=== PATIENT | male | born 2005 | race Caucasian/White ===

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

== ENCOUNTER 2024-01-10 14:10 | Day surgery (SDC) | payer MEDICAID, SELFPAY ==
[2024-01-10] VITALS (10 sets, daily range): BP systolic 127–163; BP diastolic 77–86; PULSE 86–138; RESP 16–20; TEMP 36.6–37.3; O2SAT 97–99; BMI 24.7
--- NOTE | 2024-01-10 14:20 | CT_ITS ---
We are attempting to reach an attending provider to discuss findings. An addendum with communication details will be sent when the communication is complete. STUDY: CT ABDOMEN AND PELVIS WITH CONTRAST REASON FOR EXAM: Male, 18 years old. RLQ and suprapubic pain RADIATION DOSAGE (If Supplied By Facility): CTDIvol = ( 13.70 ) mGy, DLP = ( 768.72 ) mGycm TECHNIQUE: IV 100mL Isovue-370 was administered. Transaxial images were obtained from the dome of the diaphragm to the symphysis pubis. Multiplanar coronal and sagittal images were reformatted. The protocol utilizes one or more of the following dose reduction techniques: automated exposure control, adjustment of mA and/or kV according to patient size,and/or use of iterative reconstruction technique. COMPARISON: No relevant prior comparison study available FINDINGS: The visualized lung bases are unremarkable. The visualized portions of the heart are within normal limits. Normal liver. Normal gallbladder and extrahepatic biliary system. Normal spleen. Normal pancreas. Normal bilateral adrenal glands. Normal right kidney. Normal left kidney. Normal visualized stomach. Normal small intestine. Normal colon. There is a tubular, thick-walled appendix (>7mm), consistent with acute appendicitis. Normal abdominal aorta. No retroperitoneal adenopathy. Normal urinary bladder. Trace of free fluid in the pelvis. Normal abdominal wall. Normal osseous structures. CT/Abdomen/Pelvis W IV Cont ONLY IMPRESSION: Thickening of the appendix consistent with acute appendicitis. Electronically Signed: Jong Nunez MD at 15:04 EDT ,
[2024-01-10 14:37] LABS: Absolute Lymphocyte Count 1.36 X10^3/uL (0.83-4.51); Absolute Neutrophil Count 19.1 X10^3/uL (2.0-7.7); Basophil# 0.06 X10^3/uL; Basophil% 0.3 % (0-1); Eosinophils% 0.9 % (0-5); Hematocrit 44.4 % (40-54); Hemoglobin 14.9 g/dL (13.0-16.5); Lymphocyte # 1.36 X10^3/ul (0.83-4.51); Lymphocyte % 6.2 % (19-41); Mean Corp Hgb Conc 33.6 g/dL (32-36); Mean Corpuscular Hgb 28.6 pg (27.0-32.0); Mean Corpuscular Volume 85.2 fL (80-94); Mean Platelet Vol. 8.8 fl (6.2-12.0); Monocyte# 1.09 X10^3/uL; NRBC Flagged by Analyzer 0 % (0-5); Neutrophil # 19.11 X10^3/uL (2.7-7.7); Neutrophil % 87.1 % (47-70); Platelet Count 321 K/mm3 (150-450); RBC Distribution Width CV 13.3 % (11.6-14.6); RBC Distribution Width SD 41.4 fl (35.1-43.9); Red Blood Count 5.21 M/mm3 (4.6-6.2); White Blood Count 21.9 K/mm3 (4.4-11.0)
[2024-01-10] MEDS: 0.9% Normal Saline (1000mL) 1,000 ML 999 ML IV (14:37)
[2024-01-10] MEDS: Ondansetron 4 MG/2 ML Vial IV (14:37)
[2024-01-10] MEDS: Morphine 4 MG/ML Syringe IV (14:37)
[2024-01-10 14:53] LABS: ALB/GLOB Ratio 1.1 RATIO (0.9-2.4); AST(SGOT) 43 U/L (15-37); Alanine Aminotransfer ALT/SGPT 83 U/L (16-61); Albumin, Serum 4.1 g/dL (3.2-5.0); Alkaline Phosphatase 128 U/L (45-117); Anion Gap 5 (5-15); BUN 13 mg/dL (7-18); BUN/Creat Ratio 13.5 RATIO (10-20); Calcium,Total 9.8 mg/dL (8.5-10.1); Chloride 102 mmol/L (98-107); Creatinine, Serum 0.96 mg/dL (0.70-1.30); EST Glomerular Filtration Rate 105 mL/min (>60); Est Glom Filt Rate - Afr Amer 127 mL/min (>60); Estimated Creatinine Clearance 134.72 ml/min; Globulin 3.7 g/dL (2.2-4.2); Glucose 122 mg/dL (74-106); Lipase 40 U/L (13-75); Potassium 4.2 mmol/L (3.5-5.1); Protein, Total 7.8 g/dL (6.4-8.2); Sodium Level 136 mmol/L (136-145)
--- NOTE | 2024-01-10 15:01 | EDS_ITS ---
HPI History of Present Illness Chief Complaint: Abd Pain Onset/Context/Timing Quality - All: pressure Narrative Narrative: Patient is a 18-year-old male with a past medical history of anxiety who presents to the emergency department with chief complaint of abdominal pain. He states that his abdominal pain started this morning and progressively worsened prompting him to come here for the evaluation management. Patient states that he has not bowel movements in a few days he normally goes every other day. Patient denies any recent sick contacts denies eating anything out of the ordinary for himself. He states that he does have some nausea denies any diarrhea. [facility] Medical History Asthma Manic depression Anxiety Home Medications ?Medication ?Instructions ?Recorded ?Last Taken ?Type olanzapine 10 mg tablet 5 mg PO BID psychosis 01/10/24 Unknown History venlafaxine 37.5 mg 37.5 mg PO DAILY 01/10/24 Unknown History capsule,extended release 24 hr Allergy/AdvReac Type Severity Reaction Status Date / Time No Known Allergies Allergy Verified 01/10/24 14:11 Social History Smoking Status: Current some day smoker tobacco type: e-cigarettes ROS ROS ED ROS Narrative Constitutional: Denies any fevers, headache, lightheadedness, dizziness Cardiovascular: Denies chest pain or palpitations Respiratory: Denies coughing wheezing shortness of breath Abdomen: Complains of abdominal pain and nausea as noted above : Denies any urinary symptoms Neurological: Denies numbness, weakness, tingling Neurological: Denies numbness, weakness, tingling Skin: Denies rashes or lesions EXAM Physical Exam Narrative Exam Narrative: General: Patient lying in bed rest comfortably did not appear to be in acute distress Head: Atraumatic, normocephalic Eyes: Pupils equal round reactive to light bilaterally, extraocular muscles intact bilateral, no conjunctival injection noted Neck: Soft, supple, trachea midline Cardiovascular: Regular rate and rhythm no murmurs gallops rubs noted Respiratory: Clear to auscultation bilaterally no rales rhonchi or wheezes noted Abdomen: Soft, nondistended, tenderness to palpation in the right lower quadrant in the suprapubic region no rebound or guarding on exam, bowel sounds present x 4 Extremities: +5/5 strength noted in the bilateral upper and lower extremities Neurological: Patient following commands that he is at [facility] year is 2023 Skin: Warm, dry, intact Const Vital Signs: 01/10/24 14:11 Temperature 97.9 F Temperature Source Temporal Pulse Rate 86 Respiratory Rate 16 Blood Pressure 127/86 H Blood Pressure Mean 99 Pulse Ox 97 Oxygen Delivery Method Room Air MDM MDM MDM Narrative Medical decision making narrative: Patient is a 18-year-old male who presented to the emergency department chief complaint of abdominal pain. Patient will have a workup here on the diffe rential diagnosis includes to viral gastroenteritis, appendicitis, pancreatitis, viral gastroenteritis. Patient be given IV fluids, morphine and Zofran and be reevaluated. Patient CBC was significant for leukocytosis of 21,000, hemoglobin stable 14.9, platelet count normal at 321. Patient sodium normal 136, potassium normal at 4.2, creatinine normal at 0.96. Patient's AST and ALT were 43 and 83 respectively Right, lipase normal at 40. Patient CT abdomen pelvis with IV contrast was reviewed and showed acute appendicitis. Patient was given Zosyn. A did discuss case with on-call general surgeon Dr. Tobar who accept patient for admission. Patient was notified with all question concerns answered. He states that his pain has improved significantly after pain medication administered. Lab Data Labs: Laboratory Results - last 24 hr 01/10/24 14:30 WBC 21.9 H RBC 5.21 Hgb 14.9 Hct 44.4 MCV 85.2 MCH 28.6 MCHC 33.6 RDW Std Deviation 41.4 RDW Coeff of Jose David 13.3 Plt Count 321 MPV 8.8 Immature Gran % (Auto) 0.500 Neut % (Auto) 87.1 H Lymph % (Auto) 6.[address] % (Auto) 5.0 Eos % (Auto) 0.9 Baso % (Auto) 0.3 Absolute Neuts (auto) 19.1 H Absolute Lymphs (auto) 1.36 Nucleated RBC % 0 Sodium 136 Potassium 4.2 Chloride 102 Carbon Dioxide 29.0 Anion Gap 5 BUN 13 Creatinine 0.96 Estim Creat Clear Calc 134.72 Est GFR (MDRD) Af Amer 127 Est GFR (MDRD) Non-Af 105 BUN/Creatinine Ratio 13.5 Glucose 122 H Calcium 9.8 Total Bilirubin 0.40 AST 43 H ALT 83 H Alkaline Phosphatase 128 H Total Protein 7.8 Albumin 4.1 Globulin 3.7 Albumin/Globulin Ratio 1.1 Lipase 40 Radiography Diagnostic Testing: Clinical Impression(s) from Imaging Studies Abdomen/Pelvis CT 01/10/24 14:20 IMPRESSION: Thickening of the appendix consistent with acute appendicitis. Electronically Signed: Jong Nunez MD at 15:04 EDT , ADDENDUM: 01/10/24 1515 IMPRESSION: Thickening of the appendix consistent with acute appendicitis. N.B. : The above Results were Read Back by Jong Nunez MD to Zuhair Plummer DO, and understanding confirmed on 01/10/2024 15:08:10 (ET). Electronically Signed: Jong Nunez MD at 15:04 EDT , Discharge Plan Triage Chief Complaint: Abd Pain ED Provider: Zuhair Plummer Dx/Rx/DC Orders Clinical Impression: Acute appendicitis, Abdominal pain Prescriptions: No Action venlafaxine 37.5 mg capsule,extended release 24hr 37.5 mg PO DAILY olanzapine 10 mg tablet 5 mg PO BID Primary Care Provider: Elidia Moa NP Referrals: Elidia Mao NP, [employer] [Primary Care Provider] - Print Language: Frisian Disposition Disposition: Acute Care Hospital
[2024-01-10] MEDS: Piperacil/Tazobactam 3.375 GM in 0.9% Normal Saline (50mL MB+) 50 ML IV (15:25)
--- NOTE | 2024-01-10 15:37 | PCM.HP.STD ---
HPI - General General Date of Service: 01/10/24 Chief Complaint: Acute onset progressive abdominal pain HPI Narrative TY MARRERO, is a 18 M who presents to [facility] with complaints of acute onset progressive abdominal pain. He shares that this pain began approximately 730 this morning after he returned home from his third shift duties. He relates that the pain was also associated with some nausea and vomiting. He denies any fevers or chills. His mother accompanies him in the emergency department. She promised him that he has not had a normal appetite. He then goes on to share that he has been constipated and felt bloated every time he eats over the past couple days. Patient's laboratories demonstrate leukocytosis with CBC of 21.9. CT imaging of the abdomen pelvis is read as consistent with acute appendicitis. Patient's only past medical history is for anxiety and depression. He states he is also under workup with neurology for a interesting phenomenon where his right side does not work after sitting for a while. He wishes to know whether his appendicitis is potentially related to this undiagnosed condition. [facility], [facility] Medical History Asthma Manic depression Anxiety Home Medications ?Medication ?Instructions ?Recorded ?Last Taken ?Type olanzapine 10 mg tablet 5 mg PO BID psychosis 01/10/24 Unknown History venlafaxine 37.5 mg 37.5 mg PO DAILY 01/10/24 Unknown History capsule,extended release 24 hr Allergy/AdvReac Type Severity Reaction Status Date / Time No Known Allergies Allergy Verified 01/10/24 14:11 Social History Smoking Status: Current some day smoker tobacco type: e-cigarettes ROS Constitutional Constitutional: Denies chills or fever(s) Gastrointestinal Gastrointestinal: Reports abdominal pain, bloating, constipation, nausea and vomiting Vital Signs Vital Signs Vital Signs: 01/10/24 14:11 Temperature 97.9 F Temperature Source Temporal Pulse Rate 86 Respiratory Rate 16 Blood Pressure 127/86 H Blood Pressure Mean 99 Pulse Ox 97 Oxygen Delivery Method Room Air Weight Weight: 182 lb 4.8 oz Body Mass Index (BMI) 24.7 Physical Exam Const alert, oriented x3, no apparent distress and well nourished General Appearance: cooperative and well developed Resp normal respiratory effort GI GI Narrative: Hirsute, normal habitus, nondistended, no visible herniation, soft, tender to palpation over McBurney's point. Negative Rovsing, negative obturator, negative psoas sign Results Lab / Micro Data 01/10/24 14:30 01/10/24 14:30 Labs: Laboratory Results - last 24 hr 01/10/24 14:30: WBC 21.9 H, RBC 5.21, Hgb 14.9, Hct 44.4, MCV 85.2, MCH 28.6, MCHC 33.6, RDW Std Deviation 41.4, RDW Coeff of Jose David 13.3, Plt Count 321, MPV 8.8, Immature Gran % (Auto) 0.500, Neut % (Auto) 87.1 H, Lymph % (Auto) 6.2 L, [place] % (Auto) 5.0, Eos % (Auto) 0.9, Baso % (Auto) 0.3, Absolute Neuts (auto) 19.1 H, Absolute Lymphs (auto) 1.36, Nucleated RBC % 0, Sodium 136, Potassium 4.2, Chloride 102, Carbon Dioxide 29.0, Anion Gap 5, BUN 13, Creatinine 0.96, Estim Creat Clear Calc 134.72, Est GFR (MDRD) Af Amer 127, Est GFR (MDRD) Non-Af 105, BUN/Creatinine Ratio 13.5, Glucose 122 H, Calcium 9.8, Total Bilirubin 0.40, AST 43 H, ALT 83 H, Alkaline Phosphatase 128 H, Total Protein 7.8, Albumin 4.1, Globulin 3.7, Albumin/Globulin Ratio 1.1, Lipase 40 Imaging Radiology Impression Abdomen/Pelvis CT 01/10/24 14:20 IMPRESSION: Thickening of the appendix consistent with acute appendicitis. Electronically Signed: Jong Nunez MD at 15:04 EDT , ADDENDUM: 01/10/24 1077 IMPRESSION: Thickening of the appendix consistent with acute appendicitis. N.B. : The above Results were Read Back by Jong Nunez MD to Plummer, Zuhair , DO, and understanding confirmed on 01/10/2024 15:08:10 (ET). Electronically Signed: Jong Nunez MD at 15:04 EDT , Assessment & Plan Assessment/Plan (1) Acute appendicitis: PLAN: Patient is a 18-year-old male who presents with signs and symptoms of acute appendicitis. Symptoms began approximately 8 hours ago. His exam is positive for localized peritonitis in the region of McBurney's point. I discussed the generally excepted natural history of acute appendicitis and its management. I shared that in this country surgical appendectomy is still part of the standard of care although in other parts of the world and antibiotic alone approach is accepted. I discussed the reasons for this difference and then went on to detail the procedure itself. Ultimately emergent surgical laparoscopic appendectomy was recommended. Both patient and his mother had the opportunity ask questions which were answered to their satisfaction. Consents were signed during our encounter. Patient will be dispo to the OR from the emergency department. I have discussed outpatient disposition but shared that this is contingent on patient's clinical course and operative findings. Nelson Tobar MD General Surgery Endocrine Surgery Pager: [facility] [address] [place] [address], [address] [place] [address] Office: [phone] Charges/Coding Visit Charges Inpatient E&M: 37758 Init Hosp L2
[2024-01-10 15:58] LABS: Bacteria 0 SEEN /hpf (None Seen); Mucous, Urine 0 SEEN /hpf (<or=2+); Red Blood Cells-Urine 0 SEEN /hpf (0-5); Squamous Epithelial Cells - UA 0 SEEN /hpf (0-5); White Blood Cells 0 SEEN /hpf (0-5)
[2024-01-10 16:08] LABS: Color, Urine Yellow (Yellow); Glucose, Dipstick Normal (Normal); Ketone-Dipstick Negative (Negative); Leukocyte Esterase-Dipstick Negative /ul (Negative); Nitrite-Dipstick Negative (Negative); Occult Blood-Urine Negative /ul (Negative); Protein-Dipstick Negative (Negative); Urine Bilirubin Dipstick Negative (Negative); Urine Clarity Clear (Clear); Urine Urobilinogen Normal (Normal)
--- NOTE | 2024-01-10 16:24 | PRE.ANES_ITS ---
ASA Classification* ASA Classification ASA Classification: 2 and E Assessment & Plan Anesthesia* Anesthesia Assessment Anesthesia Assessment: Discussed sedation and/or anesthesia options, risks, benefits, and alternatives with patient/parents/legal guardian/POA. Questions invited. The patient/parents/legal guardian/POA seems to understand and agrees to proceed with anesthesia plan. Reviewed the physical assessment, medical history, allergy history and patient home medications list prior to surgery/procedure/anesthetic and documented any changes. Performed airway and anesthesia risk assessments. Anesthesia Type Anesthesia Type: General History Source History Obtained from:: Patient Anesthesia Focused Assessment* Temperature: 98 F Pulse Rate: 108 Blood Pressure: 136/85 Respiratory Rate: 16 Pulse Ox: 98 Oxygen Delivery Method: Room Air Airway Assessment Mouth opens: >3 cm Mallampati Score: II Teeth Condition: Intact (braces) Neck Range of motion (ROM): Full ROM Focused Labs Anesthesia Preop lab: CBC WBC 21.9 K/mm3 (4.4-11.0) H 01/10/24 14:30 RBC 5.21 M/mm3 (4.6-6.2) 01/10/24 14:30 Hgb 14.9 g/dL (13.0-16.5) 01/10/24 14:30 Hct 44.4 % (40-54) 01/10/24 14:30 Plt Count 321 K/mm3 (150-450) 01/10/24 14:30 CHEMISTRY Potassium 4.2 mmol/L (3.5-5.1) 01/10/24 14:30 Sodium 136 mmol/L (136-145) 01/10/24 14:30 BUN 13 mg/dL (7-18) 01/10/24 14:30 Creatinine 0.96 mg/dL (0.70-1.30) 01/10/24 14:30 Glucose 122 mg/dL (74-106) H 01/10/24 14:30 COAG Pre-Assessment Diagnosis/Proposed Procedure Planned Operative Procedure(s): Lap appy Anesthesia History Anesthesia History - dining room attendant: Anesthesia History - dining room attendant Hx Hospitalization Any Problems With Anesthesia No 01/10/24 15:33 Cholinesterase deficiency No 01/10/24 15:33 You/Your Family Experience No 01/10/24 15:33 fever (hyperthermia) with Relationship Recent Exposure to Contagious No 01/10/24 15:33 Disease Does patient have nerve No 01/10/24 15:33 stimulator Patient instructed to have No 01/10/24 15:33 device shut off --Does patient have Pacemaker No 01/10/24 15:33 or ICD? When Was Last Pacemaker Check QUESTION #4 FULL TEXT: You/Your Family Experience fever (hyperthermia) with Anesthesia Any additional information?: No Last Oral Intake Last Oral intake: Last Oral Intake NPO since 07:00 01/10/24 15:33 Meds taken in AM with sips of No 01/10/24 15:33 water? Meds patient instructed to take am of surgery Any additional information?: No PONV PONV - dining room attendant: PONV - dining room attendant Female HX of Motion Sickness HX of N/V After Surgery Non-Smoker Duration of Surgery greater than 60 minutes Number of Risk Factors PONV Score Any additional information?: No Height & Weight Height & Weight: Anesthesia: Height & Weight Height 6 ft 01/10/24 15:33 Weight: 82.69 kg 01/10/24 15:33 Body Mass Index (BMI) 24.7 01/10/24 15:33 Respiratory Assessment Respiratory Assessment - dining room attendant: Respiratory Tract Infection Hx - dining room attendant Hx Respiratory Tract Infection No 01/10/24 15:33 Any additional information?: No STOP Sleep Apnea STOP Sleep Apnea - dining room attendant: STOP Sleep Apnea - dining room attendant Hx Hypertension No 01/10/24 15:33 Hx Sleep Apnea No 01/10/24 15:33 CPAP BIPAP Do you snore loudly (louder No 01/10/24 15:33 than talking or can be heard Do you often feel tired/ No 01/10/24 15:33 fatigued/ sleepy during daytime? Has anyone observed you stop No 01/10/24 15:33 breathing during sleep? STOP Results Negative 01/10/24 15:33 QUESTION #5 FULL TEXT : Do you snore loudly (louder than talking or can be heard through closed doors)? Any additional information?: No Tobacco Use History Tobacco Use History - dining room attendant: Tobacco Use History - dining room attendant Tobacco Use Smoking Status Current some day smoker 01/10/24 14:31 Hx Tobacco Use Years Smoking Packs Smoked per Day Smoking Cessation Date was within the last 15 years Hx Smoking Cessation Date Hx Smoking Cessation Counseling Any additional information?: No Hematologic Medial History Hematologic Hx - dining room attendant: Hematologic Medical Hx - keno attendant Hx of Blood Transfusion Hx of Transfusion in last 3 Months Date of Last Transfusion (if within last 3 months) Ever experience any problems with transfusion(s)? Specify any problems Hx of Preganancy in last 3 Months Nurse Filling Out Transfusion & Questions: Date: Time: Patient unable to answer at this time (ie. confused, unrespo Any additional information?: No /Reproduction History /Reproductive History - dining room attendant: /Reproductive Hx- dining room attendant Hx Now No 01/10/24 15:33 Gestational Age (in weeks): EDC: Hx Hx Para Hx Section SAB No 01/10/24 15:33 Any additional information?: No PFSH Medical History Asthma Manic depression Anxiety Medical History no medical history Home Medications ?Medication ?Instructions ?Recorded ?Last Taken ?Type olanzapine 10 mg tablet 5 mg PO BID psychosis 01/10/24 Unknown History venlafaxine 37.5 mg 37.5 mg PO DAILY 01/10/24 Unknown History capsule,extended release 24 hr Allergy/AdvReac Type Severity Reaction Status Date / Time No Known Allergies Allergy Verified 01/10/24 14:11 Surgical History no surgical history Social History (Updated 01/10/24 @ 16:26 by Nelson Biswas CRNA) Smoking Status: Current some day smoker tobacco type: e-cigarettes substance use type: other details: marijuana daily, smoked today as well Review of Systems (Anesthesia) ROS Narrative System reviewed and no additional complaints, except as documented. Allergic/Immunologic Allergic/Immunologic: Reports asthma Physical Exam Const alert and oriented x3 General Appearance: anxious Orientation / Consciousness: awake HEENT dentition normal Neck full ROM Resp normal respiratory effort Auscultation: clear to auscultation bilaterally Cardio regular rate and regular rhythm Extremity full ROM Neuro oriented x3 and moves all extremities
--- NOTE | 2024-01-10 16:29 | NURSING ---
Report called to OR. They are ready for pt.
--- NOTE | 2024-01-10 17:05 | APP_PTH ---
PATIENT: TY MARRERO [place] [facility] [id number] AGE/SX: 18/M ROOM: RE01/10/[address]: Dr. Nelson Tobar MD : 2005 BED: DIS: 01/10/2024 SPEC #: [id number] RECD: 01/11/24 07:20 STATUS: HILARIA REMarkel #: [id number] MARIO: 01/10/24 17:[address]: Nelson Tobar DEPT: SURGICAL PATHOLOGY RECD BY: Jeffrey Bundy ENTERED: 01/11/24 08:49 SP TYPE: APPENDIX OTHR DR: Elidia Mao, DIRECTOR [facility] Tissues: Appendix, NOS Procedures: Surgery Specimen Level III HEADER OPERATION: Laparoscopic appendectomy PRE-OP DIAGNOSIS: Acute appendicitis TISSUE SUBMITTED: Appendix MICROSCOPIC DIAGNOSIS Appendix, appendectomy: Acute necrotizing appendicitis. Acute serositis. One benign lymph node. AM/mr 01/12/2024 MICROSCOPIC DESCRIPTION Slides are reviewed. GROSS DESCRIPTION Received in fixative is one container labeled with the patient's name and designated appendix. The specimen consists of lateral C shaped appendix measuring 9.5 cm in length and up to 1.0 cm in diameter. The attached periappendiceal adipose tissue measures up to 2.0 cm in width. The serosa is covered with anderson purulent exudate. No obvious perforation is identified. Mucosa is hemorrhagic. The lumen is filled with fecal material. No fecalith is identified. Personal Fitness Trainer sections are submitted in one cassette. / WILLIAMS: 01/11/2024 TC:2 CPT: 23857
[2024-01-10] MEDS: Bupiv/Epi 0.25% 30 ML Vial (17:29)
--- NOTE | 2024-01-10 17:40 | PCM.OPRPT ---
Report of Operation Date of Procedure: 01/10/24 Pre-Operative Diagnosis: Acute appendicitis Post-Operative Diagnosis: Acute uncomplicated appendicitis Surgery/Procedure Performed:: Laparoscopic appendectomy Description of Surgical Findings:: ? Acutely inflamed appendix with fibrinous exudate but no signs of perforation Surgeon: Nelson Tobar Type of Anesthesia: General/Supplemental Anesthesiologist: Nelson Biswas Specimen's removed: appendix Drains: none Estimated Blood Loss (mL): 5 Description of Procedure: After appropriate identification in the preoperative holding area, the patient was brought to the operating room and placed supine on the operating room table. Antibiotics had been preoperatively administered. Patient was then induced with general endotracheal anesthetic. The abdomen was prepped and draped in usual sterile fashion. Formal timeout was conducted to confirm both the patient and the procedure. A supraumbilical incision was made and carried down to the level of the fascia which was sharply opened. After opening the peritoneum in like fashion a finger sweep was made to confirm position, and a balloon trocar was placed and pneumoperitoneum was established to 15 mmHg. Patient was positioned in Trendelenburg with the left side down. 2 additional 5 mm trocars were placed in the left lower quadrant and suprapubic positions. The peritoneum was inspected and there were no signs of inadvertent injury from this [place] entry. The appendix was visualized with mild to moderate inflammation alongside of some simple fluid in the pelvis. Using blunt laparoscopic dissection, a window was made in the mesoappendix adjacent to the appendiceal base. The mesoappendix was divided with application of a laparoscopic Enseal device. Then the base of the appendix was sealed and amputated with the use of an Endo JOANNA stapler. The appendix was placed in an Endo Catch bag. The staple line was inspected for hemostasis and the fluid of the pelvis was suctioned free. After hemostasis was confirmed the appendix was removed from the umbilical port site and pneumoperitoneum was evacuated. The supraumbilical port site fascia was closed with #1 Vicryl in a [id number] fashion. The port sites were infiltrated with 30 mL local anesthetic (total). The skin of each port site was closed with 4-0 Monocryl in a subcuticular fashion. Steri-Strips and OpSite dressings were applied. Patient tolerated procedure well without any apparent complications. They were awoken from general anesthetic without issue and transferred to post anesthesia care unit for ongoing recovery. Complications None Procedures Digestive [id number]: [id number] Laparoscopy appendectomy
--- NOTE | 2024-01-10 17:43 | DCINST_ITS ---
Discharge Instructions Diet Discharge Diet: No restrictions Activity Discharge Activity: May Not Drive (No driving while using narcotic pain medication) and May Shower (Postoperative day 1) May shower in (days): 2 Ice area for (Minutes): 20 Lifting Restrictions: No lifting greater than 15 pounds for 2 weeks after surgery Dressing / Incision Call your doctor if your incision/area has: Continuous Slow Oozing, Increased Pain/ Swelling, Increased Redness, Foul Smelling Discharge and Swelling at the incision site Call your doctor if you observe: Fever of 101 or Higher Remove Dressing in: 2 days (Please leave Steri-Strips intact until they fall off spontaneously or are taken off at your follow-up visit) Cleanse incision/area with: Soap & Water Follow Up Care Please Follow Up With: Nelson Tobar MD When: 7-10days postop Test Results: Test results from this visit will be discussed in further detail at your follow- up appointment, if applicable. Discharge Plan Admission Primary Reason for Your Visit: Appendix removal Attending Provider: Nelson Tobar Primary Care Provider: Elidia Mao NP Instructions Print Language: Lebanese Discharge Orders/Prescriptions Prescriptions: New oxycodone 5 mg tablet 5 mg PO Q6H PRN (Reason: pain) 3 Days Qty: 10 0RF Continued venlafaxine 37.5 mg capsule,extended release 24hr 37.5 mg PO DAILY olanzapine 10 mg tablet 5 mg PO BID Referrals / Follow Up: Elidia Mao NP, ETHNOLOGY PROFESSOR-C [Primary Care Provider] - Disposition Disposition (needs filled in before D/C Order can be placed): Home, Self Care
--- NOTE | 2024-01-10 17:57 | PCM.POST.ANE ---
Anesthesia: Postop Eval I Current Vital Signs Temperature: 97.8 F Pulse Rate: 124 Blood Pressure: 151/84 Respiratory Rate: 20 Pulse Ox: 98 Oxygen Delivery Method: Room Air Assessment Airway patent: Yes Spontaneous unlabored respirations: Yes Mental status: Awake and Calm nausea: No Vomiting: No Anesthesia Complication: No Fluid Hydration Crystalloid volume administer (ml): 600 Total IV fluid infused: 600 Progress Note Anesthesia document: Postop Eval 1 completed: Yes
--- NOTE | 2024-01-10 17:59 | POSTOPAN2_ITS ---
Anesthesia Postop Eval I Sum Postop Eval Completion status Anesthesia document: Postop Eval 1 completed: Yes Anesthesia Postop Eval I Summary Anesthesia Postop Eval I Summary: Anesthesia Postop Eval I: Assessment Summary Airway patent Yes 01/10/24 17:57 FIREWORKS ASSEMBLY SUPERVISOR.MEDM Spontaneous unlabored Yes 01/10/24 17:57 FIREWORKS ASSEMBLY SUPERVISOR.MEDM respirations Mental status Awake,Calm 01/10/24 17:57 FIREWORKS ASSEMBLY SUPERVISOR.MEDM nausea No 01/10/24 17:57 FIREWORKS ASSEMBLY SUPERVISOR.MEDM Vomiting No 01/10/24 17:57 FIREWORKS ASSEMBLY SUPERVISOR.MEDM Anesthesia Postop Eval I: Fluid Summary Crystalloid volume administer 600 01/10/24 17:57 FIREWORKS ASSEMBLY SUPERVISOR.MEDM (ml) Colloids volume administered ( ml) Blood Product volume administered (ml) Total IV fluid infused 600 01/10/24 17:57 FIREWORKS ASSEMBLY SUPERVISOR.MEDM Anesthesia Postop Eval I: Summary Notes Anesthesia Complication No 01/10/24 17:57 FIREWORKS ASSEMBLY SUPERVISOR.MEDM Anesthesia Complication Comment: Post-operative progress note Anesthesia: Postop Eval II Evaluation Mental status: Awake Pain Level: 2 nausea: No Vomiting: No Complications Anesthesia Complication: No
--- NOTE | 2024-01-10 17:59 | PCM.POSTANE2 ---
Anesthesia Postop Eval I Sum Postop Eval Completion status Anesthesia document: Postop Eval 1 completed: Yes Anesthesia Postop Eval I Summary Anesthesia Postop Eval I Summary: Anesthesia Postop Eval I: Assessment Summary Airway patent Yes 01/10/24 17:57 WAREHOUSE STOCKER.MEDM Spontaneous unlabored Yes 01/10/24 17:57 WAREHOUSE STOCKER.MEDM respirations Mental status Awake,Calm 01/10/24 17:57 WAREHOUSE STOCKER.MEDM nausea No 01/10/24 17:57 WAREHOUSE STOCKER.MEDM Vomiting No 01/10/24 17:57 WAREHOUSE STOCKER.MEDM Anesthesia Postop Eval I: Fluid Summary Crystalloid volume administer 600 01/10/24 17:57 WAREHOUSE STOCKER.MEDM (ml) Colloids volume administered ( ml) Blood Product volume administered (ml) Total IV fluid infused 600 01/10/24 17:57 WAREHOUSE STOCKER.MEDM Anesthesia Postop Eval I: Summary Notes Anesthesia Complication No 01/10/24 17:57 WAREHOUSE STOCKER.MEDM Anesthesia Complication Comment: Post-operative progress note Anesthesia: Postop Eval II Evaluation Mental status: Awake Pain Level: 2 nausea: No Vomiting: No Complications Anesthesia Complication: No
== END 2024-01-10 19:21 | disposition home or self-care (01) ==
LOC: ED 15:27 → SDC 15:55
PROVIDERS: Emergency Provider Emergency Medicine; PCP Nurse Practitioner Family; Visit Provider Surgery
PROC: 0DTJ4ZZ Resection of Appendix, Percutaneous Endoscopic Approach (ICD-10-PCS; CPT 44970; principal; 2024-01-10 16:45)
DX: K35.30 Acute appendicitis with localized peritonitis, without perforation or gangrene (principal); F17.290 Nicotine dependence, other tobacco product, uncomplicated; Z23 Encounter for immunization
CPT/HCPCS: 44970; 74177; 80053; 81001; 83690; 85025; 88304; 90471; 99285; J7030; Q9967; A4216; J2405

== ENCOUNTER 2024-05-24 08:53 | Emergency (ER) | payer SELFPAY ==
[2024-05-24 08:54] VITALS: BP 165/102; PULSE 78; RESP 16; TEMP 36.3; O2SAT 98; BMI 22.6
--- NOTE | 2024-05-24 09:29 | EX.ED.VIS.PS ---
HPI HPI - Psych History of Present Illness Chief Complaint: Mental Health Detail of Chief Complaint: Paranoia Informant: patient Narrative Narrative: Patient presents to the emergency department with his mother. Patient feeling very paranoid. He feels like other people are talking about him and he has this feeling of impending doom. He feels like people think that he is a bad person and they think that he is in a abuser of your animals and some think he is a rapist and some think that he is a child predator. Patient's having thoughts of self-harm and plan would be to suffocate himself. When asked if he is attempted to harm himself he states that a couple nights ago he held his breath. Patient apparently had similar issues in presentation in September of this year and spent a week in a psychiatric facility. Patient had been on medication but stopped taking it for several months and started back up about a week ago. He takes venlafaxine and olanzapine. Denies recent illness. He does smoke occasional marijuana and vapes and drinks alcohol occasionally for [facility] Medical History (Updated 05/24/24 @ 13:[address] Daysi Montano, ) Acute appendicitis Abdominal pain Asthma Manic depression Anxiety Home Medications ?Medication ?Instructions ?Recorded ?Last Taken ?Type venlafaxine 37.5 mg 37.5 mg PO DAILY 01/10/24 Unknown History capsule,extended release 24 hr Allergy/AdvReac Type Severity Reaction Status Date / Time No Known Allergies Allergy Verified 05/24/24 08:57 Surgical History (Updated 01/21/24 @ 10:19 by Christine Arce) History of laparoscopic appendectomy Social History Smoking Status: Current some day smoker tobacco type: e-cigarettes substance use type: other details: marijuana daily, smoked today as well ROS ROS ED Review of Systems ROS Unobtainable: other Constitutional Constitutional ED: Reports lethargy; Denies chills, fever(s), sweats or weight loss Eyes Eyes: Denies blurry vision, change in vision or diplopia ENT ENT ED: Denies rhinorrhea or sore throat Cardiovascular Cardiovascular: Denies chest pain, orthopnea or racing heartbeat Respiratory/Chest Respiratory/Chest: Denies cough, dyspnea, dyspnea on exertion, orthopnea or sputum Gastrointestinal Gastrointestinal: Denies abdominal pain, diarrhea, nausea or vomiting Genitourinary Genitourinary ED: Denies dysuria, hematuria or urinary frequency Musculoskeletal Musculoskeletal: Denies arthralgias, back pain, myalgias or neck pain Integumentary Denies abscess, Abrasions or rash Neurologic Neurologic: Denies headache(s) or weakness Psychiatric Psychiatric: Reports depression, suicidal thoughts and other Details: Paranoia ; Denies anxiety Endocrine Endocrinology: Denies polydipsia, polyphagia or polyuria Hematologic/Lymphatic Hematologic/Lymphatic: Denies easy bleeding, easy bruising or lymphadenopathy Allergic/Immunologic Allergic/Immunologic ED: Denies mouth swelling, tongue swelling or urticaria EXAM Physical Exam Const Vital Signs: 05/24/24 08:54 Temperature 97.4 F L Temperature Source Oral Pulse Rate 78 Respiratory Rate 16 Blood Pressure 165/102 H Blood Pressure Mean 123 Pulse Ox 98 Oxygen Delivery Method Room Air Positive well nourished and well developed General Appearance ED: well developed and NAD HEENT Reports TM's clear and moist mucous membranes normocephalic and atraumatic; Negative for trauma or tenderness Tympanic Membrane ED: Yes TM's clear Eyes PERRL and EOMs intact bilaterally General Eye ED: Negative for pale conjunctiva or scleral icterus Neck no lymphadenopathy, supple and no JVD General: Negative for tenderness Chest Wall inspection of chest normal and palpation of chest normal Chest: Negative for tenderness Resp normal respiratory effort and clear to auscultation bilaterally Effort and Inspection: Negative for respiratory distress or pain with movement Auscultation: Negative for rhonchi, wheezes or diminished lung sounds Cardio regular rate, regular rhythm, S1 normal heart sound, S2 normal heart sound and no murmurs Peripheral Pulses: pulses 2+ throughout GI normal to inspection, nondistended, normoactive bowel sounds, soft to palpation, non-tender, non-distended and no masses Back/Spine no CVA tenderness and no thoracic nor lumbar tenderness Extremity normal to inspection General Extremety ED: Negative for edema General Extremity: Negative for edema Neuro oriented x3, CN's II-XII intact bilaterally, no sensory deficits noted and gait normal Sensorium / Orientation: awake, alert, oriented to person, oriented to place and oriented to time Motor Exam: strength 5/5 throughout and strength abnormal Psych mental status grossly normal Attitude: paranoid Speech: normal speech Mood & Affect: apathetic Thought Process: racing thoughts Attention / Concentration: attention grossly intact Skin no rashes or lesions noted and no wounds MDM MDM MDM Narrative Medical decision making narrative: Patient presents with paranoia and apparently is not been eating or sleeping well. Patient has been noncompliant with his medications. Similar presentation and hospitalization in September. CBC with differential obtained showing of 8.2 with hemoglobin 17 and platelet count of 369. Chemistries unremarkable. Alcohol was less than 3 and toxicology screen positive for marijuana. Patient evaluated by crisis. At this point we will attempt find placement for patient to psychiatric facility for definitive care. Patient care turned over to evening physician awaiting placement to psychiatric facility. Lab Data Attestation: I reviewed the patient's lab results. Labs: Laboratory Results - last 24 hr 05/24/24 05/24/24 09:40 12:00 WBC 8.2 RBC 5.96 Hgb 17.1 H Hct 50.9 MCV 85.4 MCH 28.7 MCHC 33.6 RDW Std Deviation 41.6 RDW Coeff of Jose David 13.4 Plt Count 389 MPV 9.3 Immature Gran % (Auto) 0.400 Neut % (Auto) 67.9 Lymph % (Auto) 22.7 Dickinson % (Auto) 7.5 Eos % (Auto) 0.6 Baso % (Auto) 0.9 Absolute Neuts (auto) 5.6 Absolute Lymphs (auto) 1.87 Nucleated RBC % 0 Sodium 138 Potassium 4.0 Chloride 106 Carbon Dioxide 25.0 Anion Gap 7 BUN 14 Creatinine 1.05 Estim Creat Clear Calc 119.33 Est GFR (MDRD) Af Amer 115 Est GFR (MDRD) Non-Af 95 BUN/Creatinine Ratio 13.3 Glucose 96 Calcium 10.3 H Urine Opiates Screen NEGATIVE Urine Methadone Screen NEGATIVE Ur Barbiturates Screen NEGATIVE Ur Phencyclidine Scrn NEGATIVE Ur Amphetamines Screen NEGATIVE MDMA (Ecstasy) Screen NEGATIVE U Benzodiazepines Scrn NEGATIVE Urine Cocaine Screen NEGATIVE U Cannabinoids Screen POSITIVE H Ur Drug Screen Comment Ethyl Alcohol < 3.0 Discharge Plan Triage Chief Complaint: Mental Health ED Provider: Daysi Montano Dx/Rx/DC Orders Clinical Impression: Psychosis, Acute paranoia, Suicidal ideation Prescriptions: No Action venlafaxine 37.5 mg capsule,extended release 24hr 37.5 mg PO DAILY Primary Care Provider: Elidia Mao NP Referrals: Mayco,Elidia AIR SEALING TECHNICIAN, AIR SEALING TECHNICIAN-C [Primary Care Provider] - Print Language: Welsh Disposition Disposition: Psychiatric Hospital or Unit
--- NOTE | 2024-05-24 09:49 | ED.RN ---
patients mother is upset patients belongings had been taken away and placed in our mental health bins. RN states this is hospital policy for mental health patients for belongings to be taken away. mother states you are making it worse and freaking him out. rn states It will be locked away.
[2024-05-24 09:58] LABS: Absolute Lymphocyte Count 1.87 X10^3/uL (0.83-4.51); Absolute Neutrophil Count 5.6 X10^3/uL (2.0-7.7); Basophil# 0.07 X10^3/uL; Basophil% 0.9 % (0-1); Eosinophil# 0.05 X10^3/uL; Eosinophils% 0.6 % (0-5); Hematocrit 50.9 % (40-54); Hemoglobin 17.1 g/dL (13.0-16.5); Lymphocyte # 1.87 X10^3/ul (0.83-4.51); Lymphocyte % 22.7 % (19-41); Mean Corp Hgb Conc 33.6 g/dL (32-36); Mean Corpuscular Hgb 28.7 pg (27.0-32.0); Mean Corpuscular Volume 85.4 fL (80-94); Mean Platelet Vol. 9.3 fl (6.2-12.0); Monocyte# 0.62 X10^3/uL; Monocyte% 7.5 % (0-10); NRBC Flagged by Analyzer 0 % (0-5); Neutrophil # 5.58 X10^3/uL (2.7-7.7); Neutrophil % 67.9 % (47-70); Platelet Count 389 K/mm3 (150-450); RBC Distribution Width CV 13.4 % (11.6-14.6); RBC Distribution Width SD 41.6 fl (35.1-43.9); Red Blood Count 5.96 M/mm3 (4.6-6.2); White Blood Count 8.2 K/mm3 (4.4-11.0)
[2024-05-24 10:06] LABS: Alcohol, Blood (Medical)-Serum < 3.0 mg/dL; Anion Gap 7 (5-15); BUN 14 mg/dL (7-18); BUN/Creat Ratio 13.3 RATIO (10-20); Calcium,Total 10.3 mg/dL (8.5-10.1); Chloride 106 mmol/L (98-107); Creatinine, Serum 1.05 mg/dL (0.70-1.30); EST Glomerular Filtration Rate 95 mL/min (>60); Est Glom Filt Rate - Afr Amer 115 mL/min (>60); Estimated Creatinine Clearance 119.33 ml/min; Glucose 96 mg/dL (74-106); Sodium Level 138 mmol/L (136-145)
--- NOTE | 2024-05-24 11:19 | CM.ED ---
Social work Reason for referral: mental health Referral source: Dr. Montano This SW and SW Debbie acknowledged patient's need to see patient due to his mental health concerns. As SWs were preparing to enter the patient's room, Emily from registration expressed patient's insurance ([place] [employer]) as not being verified at this time. Emily confirmed ineligibility and patient only has [facility]. captain room service Tess and his nurse, Tae, were updated. This SW to call Crisis. This SW entered patient's room, introducing self and role at [facility]. Patient was lying in bed and appeared tearful. Patient's mother was bedside, playing on her phone and avoiding eye contact with this SW. Patient and patient's mother were updated that patient's insurance was ineligible and that patient only had pharmacy coverage. This SW identified that a member from Crisis would be in to assess patient. Patient's mother asked when Crisis would be here and stated patient is just getting worse sitting here. This SW identified that she would be calling Crisis upon leaving patient's room and would inform Crisis of patient's worsening condition. Asked if there was anything patient or his mother needed and both denied. This SW called Crisis and spoke with Cale ([phone]). Provided patient's name and upon request. Provided Cale with known information on what brought patient to ED today. Cale asked for labs and urine screens to confirm medical clearance; this SW to send them via fax when the urine comes back. Nursing updated. Faxed labs and toxicology screens to confirm medical clearance to Crisis. Plan: Crisis to evaluate due to being self pay Mariluz Peterson, CANDY SPREADER, BELLY ROLLER
[2024-05-24 12:31] LABS: Amphetamine Urine VISTA NEGATIVE (<1000 ng/mL); Barbiturate Urine VISTA NEGATIVE (< 200 ng/mL); Benzodiazepine Urine VISTA NEGATIVE (< 200 ng/mL); Cocaine Urine VISTA NEGATIVE (< 300 ng/mL); Ecstacy Urine VISTA NEGATIVE (< 500 ng/mL); Methadone Urine VISTA NEGATIVE (< 300 ng/mL); PCP Urine VISTA NEGATIVE (< 25 ng/mL); THC Urine VISTA POSITIVE (< 50 ng/mL); Vista UDS pH Range 6
[2024-05-24 18:20] VITALS: BP 115/79; PULSE 66; RESP 18; O2SAT 96
--- NOTE | 2024-05-24 18:50 | ED.RN ---
[facility] CALLED, PT REFERRED TO [facility]
--- NOTE | 2024-05-24 19:41 | ED.RN ---
PATIENT HAS BEEN ACCEPTED AT [facility]. MOTHER INFORMED PRIOR TO INFORMING THE PATIENT. PATIENT INFORMED BY THIS RN AND MOTHER AT BEDSIDE. PATIENT UPSET AND STATING HE SHOULD NOT COME HERE. I KNEW THEY WEREN'T GOING TO HELP ME RN STATES TY, I KNOW THIS IS NOT WHAT YOU WANTED TO HEAR BUT THIS IS HOW WE HELP YOU. THIS IS AN EMERGENCY ROOM, THE DOCTORS ARE NOT TRAINED PSYCHIATRISTS. WE HAVE TO SEND YOU TO A PLACE THAT CAN HELP YOU. PATIENT STATES I KNEW I SHOULDN'T COME HERE. MY MOM IS JUST GOING TO LEAVE ME LIKE EVERYONE ELSE RN STATES YOUR MOM HAS BEEN SITTING HERE ALL DAY WITH YOU. SHE HASN'T LEFT YOU. SHE IS TRYING TO HELP YOU AND FIND WHAT IS BEST. MOTHER IS TEARFUL AT BEDSIDE. MOTHER REQUESTING TO TAKE PATIENTS BELONGINGS AND BRING ANOTHER BAG OF CLOTHES. PATIENT AGREES. NO FURTHER QUESTIONS OR REQUESTS AT THIS TIME
[2024-05-25 07:12] VITALS: BP 127/80; PULSE 74; RESP 18; O2SAT 98
[2024-05-25 09:06] VITALS: BP 115/79; PULSE 66; RESP 16; TEMP 36.6; O2SAT 99
[2024-05-25 09:08] VITALS: BP 115/79; PULSE 66; RESP 16; TEMP 36.6; O2SAT 99
== END 2024-05-25 08:50 ==
PROVIDERS: Emergency Provider Emergency Medicine; PCP Nurse Practitioner Family; Visit Provider Emergency Medicine
DX: F29 Unspecified psychosis not due to a substance or known physiological condition (principal); R45.851 Suicidal ideations; F17.290 Nicotine dependence, other tobacco product, uncomplicated; J45.909 Unspecified asthma, uncomplicated; F41.9 Anxiety disorder, unspecified; F12.90 Cannabis use, unspecified, uncomplicated; Z79.899 Other long term (current) drug therapy
CPT/HCPCS: 80048; 80307; 82077; 85025; 87491; 87591; 99283